=== PATIENT | female | born 1955 | race Caucasian/White ===

== ENCOUNTER 2017-11-19 08:02 | Observation (INO) | payer MEDICAID ==
[2017-09-12 12:50] VITALS: BMI 37.8
[2017-11-19] MEDS ORDERED: Bupivacaine HCl 0.25% PF (30 ml) Inj ONE (09:16)
[2017-11-19] MEDS ORDERED: Lidocaine/Epinephrine 1% 1:100000 10 ML IJ ONE (09:17)
[2017-11-19] MEDS ORDERED: ceFAZolin 1 gm in NS 2 GM/200 ML BAG IVPB ONE (09:17)
[2017-11-19] MEDS ORDERED: Midazolam 2 MG/2 ML VIAL ONE (10:59)
[2017-11-19] MEDS ORDERED: Propofol 10 mg/ml Inj (20 ML) ONE (10:59)
[2017-11-19] MEDS ORDERED: Neostigmine Methylsulfate 3mg/3ml Syringe IV ONE (12:32)
--- NOTE | 2017-11-19 13:11 | PCM.SURG1 ---
Surgeon's Initial Post Op Note - Surgeon's Notes Surgeon: Dr. Sauceda Telegraph Office Manager: Michell Carlin, PGY-1; Renate ASENCIO Pre-Operative Diagnosis: Umbilical hernia Operative Findings: Umbilical hernia, diastasis recti Post-Operative Diagnosis: Umbilical hernia, diastasis recti Operation Performed: Incarcerated umbilical hernia repair and diastasis recti repair with mesh Specimen/Specimens Removed: None Estimated Blood Loss: EBL {In ML}: 10 Blood Products Given: N/A Drains Used: No Drains Post-Op Condition: Good Date of Surgery/Procedure: 11/19/17 Time of Surgery/Procedure: 13:11
[2017-11-19] MEDS: HYDROmorphone 0.5 mg/0.5 ml ISec IVP PRN ×3 (13:36→15:50)
[2017-11-19] MEDS ORDERED: HYDROmorphone 0.5 mg/0.5 ml ISec ONE (13:37)
[2017-11-19] MEDS ORDERED: Albuterol-Ipratrop 3 mg / 0.5 (3 ml) UD INH STA (16:42)
[2017-11-19] MEDS ORDERED: Albuterol-Ipratrop 3 mg / 0.5 (3 ml) UD ONE (16:42)
--- NOTE | 2017-11-19 16:54 | PCM.SURG1 ---
Surgeon's Initial Post Op Note - Surgeon's Notes Surgeon: Type of Anesthesia: General Endo (Patient transfered from OR to pacu and placed on bipap, O2 saturation on room air 90%, on bipap 99%. patient alert, awake and following commands )
[2017-11-19] MEDS ORDERED: Pneumococcal 23-Valent Vaccine IM ONE (20:49)
[2017-11-19] MEDS: (Novolin R) Insulin Human Regular 100 units/ml vial SC SCH (21:58)
[2017-11-19] MEDS ORDERED: (Novolog Mix 70/30) Insulin Aspart/Insulin Aspar 100 units/ml SC SCH ×2 (22:00)
--- NOTE | 2017-11-19 23:32 | OP ---
PROCEDURE DATE: 11/19/2017 PREOPERATIVE DIAGNOSES: 1. Umbilical incisional hernia. 2. Status post abdominoplasty. 3. Morbid obesity. 4. Diastasis of recti. POSTOPERATIVE DIAGNOSES: 1. Umbilical incisional hernia with incarcerated omentum. 2. Extensive omental adhesion to the anterior abdominal wall. 3. Morbid obesity. 4. Diastasis of recti. PROCEDURES: 1. Robotic incarcerated incisional hernia repair with a mesh. 2. Robotic diastasis of recti repair with a mesh. 3. Robotic lysis of adhesions. 4. Laparoscopic bilateral TAP block placement. SURGEON: Owen Sauceda MD ORGANIC SEARCH LEAD: MARSHA Rodriguez; Marge Carlin, PGY-2 Resident TYPE OF ANESTHESIA: General endotracheal tube anesthesia. ESTIMATED BLOOD LOSS: Around 10 mL. DRAINS: None. PATHOLOGY: None. COMPLICATIONS: None. INTRAOPERATIVE FINDINGS: The patient had an approximately 3 x 3 cm large umbilical incisional hernia containing large amount of omentum, and there was extensive omental adhesions to the anterior abdominal wall and extensive lysis of adhesion was done and incarcerated omentum was reduced back into the peritoneal cavity. The patient also had a 4 x 4 x 6 cm diastasis of recti. DESCRIPTION OF PROCEDURE: On intraoperative steps, this 62-year-old female who was diagnosed with umbilical hernia, status post abdominoplasty, and the patient also has morbid obesity, and the patient was consented for robotic umbilical hernia repair with mesh with diastasis of recti repair. The patient was brought to the OR, placed on the operating table. After induction of the anesthesia, abdomen was prepped and draped in the usual sterile fashion. The left upper quadrant incision was made. Using the Visiport technique, peritoneal cavity was entered. Pneumoperitoneum was created. Another 2/8 mm port was placed in the left flank and left lower quadrant. Robot was brought in. Camera arm as well as arm 1 and arm 2 was docked. The omentum was firmly adhesed to the anterior abdominal wall and an extensive lysis of adhesion was done. The omentum was reduced back into the peritoneal cavity, and the patient had an approximately 3 x 3 cm umbilical hernia defect as well as a 6 x 4 cm diastasis of recti. First, umbilical hernia site was repaired with #1 Prolene V-Loc suture in two layers and then diastasis of recti was also repaired with #1 Prolene V-Loc suture in two layers and after that, the 10 x 15 cm large mesh was placed and after proper implantation of the mesh, laparoscopic bilateral TAP block was given. At this time, all the robotic instruments were taken out, robot was undocked and after giving TAP block on both sides, 30:30 mL of Marcaine on the right and left side, the pneumoperitoneum was deflated. All the ports were taken out under vision, and all the port sites were closed in two layers with subcu with 0-Vicryl and skin with 4-0 Monocryl and dry sterile dressing was applied. The patient was extubated in the OR, sent to the postanesthesia care unit in a stable condition. Owen Sauceda MD
[2017-11-20 00:59] VITALS: RESP 20
[2017-11-20] MEDS: Oxycodone/Acetaminophen 5/325 mg Tab PO PRN ×2 (02:15→10:05)
[2017-11-20] MEDS: (Novolin R) Insulin Human Regular 100 units/ml vial SC SCH ×2 (07:56→12:30)
[2017-11-20 08:07] VITALS: PULSE 77; TEMP 98.7; O2SAT 96
--- NOTE | 2017-11-20 08:07 | CP.PCM.DIS ---
Provider - Provider Date of Admission: 11/19/17 17:08 Attending physician: Owen Sauceda MD Time Spent in preparation of Discharge (in minutes): 33 Diagnosis - Discharge Diagnosis (1) Umbilical hernia Status: Resolved Priority: High Hospital Course - Lab Results Lab Results: Most Recent Lab Values POC Glucose (mg/dL) 134 mg/dL (65-110) H 11/20/17 07:54 - Hospital Course Hospital Course: Patient underwent incarcerated umbilical hernia repair and diastasis recti repair with mesh on 11/19/[address] Sauceda. Patient was admitted to surgeon Dr Sauceda's service due to post-op hypoxemia. Patient stated at home she uses a cpap machine - it's possible her hypoxemia was due to her underlying condition of presumably obstructive sleep apnea. She was admitted for observation. Her saturation improved to 100% on 2L nasal cannula. She did well post-OR and did not offer any complaints. Her pain was mild 3/10 as is expected post-OR. She will follow-up with Dr Sauceda outpatient. Discharge Exam - Head Exam Head Exam: ATRAUMATIC, NORMAL INSPECTION - Eye Exam Eye Exam: EOMI Pupil Exam: PERRL - ENT Exam ENT Exam: Mucous Membranes Moist - Neck Exam Neck exam: Normal Inspection - Respiratory Exam Respiratory Exam: Wheezes, NORMAL BREATHING PATTERN. absent: Chest Wall Tenderness, Respiratory Distress - Cardiovascular Exam Cardiovascular Exam: REGULAR RHYTHM, +S1, +S2. absent: JVD, Systolic Murmur - GI/Abdominal Exam GI & Abdominal Exam: Normal Bowel Sounds, Soft. absent: Distended, Firm, Guarding, Rebound, Tenderness - Extremities Exam Extremities exam: normal capillary refill, normal inspection, pedal pulses present - Neurological Exam Neurological exam: Oriented x3 - Psychiatric Exam Psychiatric exam: Normal Affect - Skin Skin Exam: Normal Color, Warm - Additional Findings Additional findings: Obese Discharge Plan - Follow Up Plan Condition: GOOD Disposition: HOME/ ROUTINE Instructions: How to Prevent Surgical Site Infections, Abdominal Hernia Repair , Laparoscopic Surgery Additional Instructions: Patient is medically stable for discharge. Patient should follow-up with Dr Sauceda in 1 week so he may monitor her recovery. Patient is being discharged with the following medications which she should take as instructed: 1. Percocet 5/325mg for Pain 2. Colace for Constipation If symptoms return please go see immediately seek the attention of a medical doctor. Referrals: Owen Sauceda MD [Staff Provider] -
[2017-11-20 09:59] VITALS: BP 146/73
[2017-11-20] MEDS ORDERED: Ergocalciferol 50,000 Intl Units Cap PO SCH (10:00)
[2017-11-20] MEDS ORDERED: Pantoprazole 40 mg EC Tab PO SCH (10:00)
[2017-11-20] MEDS ORDERED: Home Med 1 UNIT (Empagliflozin [Jardiance] 10 MG) PO SCH (10:00)
[2017-11-20] MEDS ORDERED: Home Med 1 UNIT (Fenofibrate [Triglide] 160 MG) PO SCH (22:00)
== END 2017-11-20 14:20 | disposition home or self-care (01) ==
LOC: C.SDS 08:02 → C.3T 17:08
PROVIDERS: ADMIT Surgery Surgical Critical Care; ATTEND Surgery Surgical Critical Care
DX: K43.0 Incisional hernia with obstruction, without gangrene (principal); K66.0 Peritoneal adhesions (postprocedural) (postinfection); R09.02 Hypoxemia; G47.33 Obstructive sleep apnea (adult) (pediatric); E66.01 Morbid (severe) obesity due to excess calories
CPT/HCPCS: 22999; 49329; 49655; 64450; 82948; 94660; C1781; G0378; J0690; J1170; J2250; J2405; J2704; J2710; J3010

== ENCOUNTER 2018-10-08 11:48 | Outpatient (CLI) | payer MEDICAID | END 2018-10-08 11:49 | disposition home or self-care (01) | LOC: C.MAMMO 11:49 | DX: Z12.31 Encounter for screening mammogram for malignant neoplasm of breast (principal) ==

== ENCOUNTER 2018-12-09 09:51 | Outpatient (CLI) | payer MEDICAID | END 2018-12-09 09:52 | disposition home or self-care (01) | LOC: C.MAMMO 09:51 ==